=== PATIENT | male | born 1975 | race Caucasian/White ===

== ENCOUNTER 2025-09-29 19:14 | Emergency (ER) | payer OTHER, SELFPAY ==
[2025-09-29] VITALS (7 sets, daily range): BP systolic 128–156; BP diastolic 74–99; PULSE 83–85; RESP 17–20; TEMP 36.9; O2SAT 95–97
--- NOTE | 2025-09-29 19:30 | PC.NURSE ---
Pt seen a neurologist from his previous seziure and had an MRI with no finding.
--- NOTE | 2025-09-29 19:35 | ECG_ITS ---
Test Date: 2025-09-29 19:43:02 Measurements Intervals [place] Rate: 76 P: 36 NV: 157 QRS: 35 QRSD: 100 T: -17 QT: 341 QTc: 385 Interpretive Statements SINUS RHYTHM CONSIDER INFERIOR INFARCT, AGE INDETERMINATE ABNORMAL ECG No previous ECG available for comparison Electronically Signed On 09-29-2025 20:41:30 EKG MANAGER by Troy Epperson D.O.
--- NOTE | 2025-09-29 20:42 | PC.NURSE ---
pt refusing a head CT.
--- NOTE | 2025-09-29 20:48 | PC.NURSE ---
pt resfusing XR
[2025-09-29 21:05] LABS: Hematocrit 42.0 % (42.0-52.0); Hemoglobin 14.7 g/dL (14.0-18.0); Immature Granulocyte Percent A 0.4 % (0-0.5); Lymphocytes Absolute Auto 1.43 K/mm3 (0.9-3.2); Mean Corpuscular HGB Conc 35.0 g/dl (32-36); Mean Corpuscular Hemoglobin 32.0 pg (26-34); Mean Corpuscular Volume 91.5 fl (80-100); Nucleated Red Blood Cells Absolute Auto 0.000 K/mm3 (0.0-0.012); Nucleated Red Blood Cells Perc 0.0 % (0.0-0.2); Platelet Count Result 250 k/mm3 (150-375); Red Blood Count 4.59 M/mm3 (4.6-6.20); White Blood Count 13.3 K/mm3 (4.5-10.0)
[2025-09-29 21:06] LABS: Add Urine Microscopic? NO; Appearance Urine Clear (Clear); Glucose Urine UA Negative (Negative); Leukocyte Esterase Ur Negative LEU/UL (Negative); Nitrate Urine Negative (Negative); Specific Grav Ur 1.010 (1.001-1.035)
[2025-09-29 21:17] LABS: Alanine Aminotransferase 24 U/L (6-50); Albumin Level 4.3 g/dL (3.5-5.1); Alkaline Phosphatase 69 U/L (38-126); Anion Gap 5 mmol/L (4-12); Aspartate Amino Transferase 29 U/L (17-59); Bilirubin,Total 0.5 mg/dL (0.2-1.3); Blood Urea Nitrogen 12 mg/dL (9-20); Calcium 9.2 mg/dL (8.4-10.2); Carbon Dioxide 26 mmol/L (22-30); Chloride 104 mmol/L (98-107); Estimated CRCL calculation 87 ml/min; Estimated Glomerular Filt Rate > 60; Glucose 124 mg/dL (65-110); Potassium 3.6 mmol/L (3.4-5.0); Sodium 135 mmol/L (137-145); Total Protein 6.9 g/dL (6.3-8.2)
--- NOTE | 2025-09-29 21:25 | ED_ITS ---
HPI - Seizure General Chief Complaint: Seizure Stated Complaint: SEIZURE/POST-ICTAL Time Seen by Provider: 09/29/25 21:06 Source: patient and EMS Mode of arrival: EMS Limitations: no limitations History of Present Illness HPI Narrative: This is a 49-year-old male with history of a prior seizure who presents to the ED for seizure. Patient states that he was at a [employer] doing a [employer]er [employer] when he had flashes of light to his right eye and subsequently passed out after that. There was reported seizure activity with full body shaking that lasted about 1 minute. Patient was postictal upon arrival but has returned to his baseline per sister. Patient reports some tongue pain at this time but denies any other issues. Related Data Allergies Allergy/AdvReac Type Severity Reaction Status Date / Time No Known Allergies Allergy Verified 09/29/25 21:50 Review of Systems 2 Review of Systems: Gen.: Denies fevers or chills Eyes: Denies eye pain or visual change ENT: Denies congestion Respiratory: Denies shortness of breath or cough CV: Denies chest pain or palpitations GI: Denies abdominal pain nausea, emesis or diarrhea denies burning, urgency, frequency or hematuria Musculoskeletal: Denies back pain or muscle pain Neuro: Denies numbness, tingling, weakness or focal weakness Skin: Denies rash Except as documented, all other systems reviewed and negative Exam 2 Narrative: APPEARANCE: No acute distress, nontoxic, resting in bed EYES: EOMI HEENT: Normocephalic, atraumatic, OMM. 2 cm tongue laceration, bleeding controlled RESPIRATORY: No respiratory distress Clear to auscultation bilaterally with no rhonchi wheezing or rales. CARDIOVASCULAR: Regular rate and rhythm without murmurs rubs or gallops. ABDOMINAL: Soft, nontender, nondistended, no rebound or guarding MUSCULOSKELETAl: Moves all extremities. No clubbing, cyanosis or edema. NEURO: Awake and alert. Following commands, speech normal, no focal deficits SKIN:: Warm, dry. No rashes lesions or abrasions PSYCHIATRIC: Normal affect/mood, Course Vital Signs Vital signs: Vital Signs Temperature 98.4 F 09/29/25 19:15 Pulse Rate 85 09/29/25 19:15 Respiratory Rate 20 09/29/25 19:15 Blood Pressure 153/97 H 09/29/25 19:15 Pulse Oximetry 96 09/29/25 19:15 Oxygen Delivery Room Air 09/29/25 19:15 Temperature 98.4 F 09/29/25 19:15 Pulse Rate 83 09/29/25 21:57 Respiratory Rate 17 09/29/25 21:57 Blood Pressure 156/99 H 09/29/25 21:57 Pulse Oximetry 97 09/29/25 21:57 Oxygen Delivery Room Air 09/29/25 19:34 [facility] Narrative Medical decision making narrative: 49-year-old male Presenting for seizure activity. On initial evaluation patient was in no acute distress afebrile, hemodynamic stable. Differentials include but are not limited to: Seizure, electrolyte abnormality, ACS Notable exam findings: Nonfocal neuro exam, 3 cm laceration to the right side of the tongue, bleeding controlled I personally reviewed the patient's lab result. Notable lab findings: Mild leukocytosis at 13.3. CMP without significant abnormalities. UA clear. EKG is interpreted by myself: Normal sinus rhythm, normal axis, normal intervals, no acute ST or T-wave changes Patient had returned to his baseline on my evaluation. He was declining any additional imaging at this time. He will follow-up with his neurologist in the next week for re-evaluation. He was given a loading dose of Keppra here in the ED. He was given a new prescription for Keppra. Patient was agreeable to this plan. Given strict return precautions. Differential Diagnosis Differential Diagnosis: Seizure, electrolyte abnormality, ACS Lab Data [facility] Lab Attestation statement: I personally reviewed the patient's lab results. 09/29/25 20:57 09/29/25 20:56 Labs: Lab Results 09/29/25 09/29/25 09/29/25 Range/Units 20:56 20:57 20:58 WBC 13.3 H (4.5-10.0) K/mm3 RBC 4.59 L (4.6-6.20) M/mm3 Hgb 14.7 (14.0-18.0) g/dL Hct 42.0 (42.0-52.0) % MCV 91.5 (80-100) fl MCH 32.0 (26-34) pg MCHC 35.0 (32-36) g/dl RDW 12.1 (11.5-14.5) % Plt Count 250 (150-375) k/mm3 MPV 9.3 (7.4-10.4) fl Immature Gran % (Auto) 0.4 (0-0.5) % Neut % (Auto) 83.0 H (45.5-73.1) % Lymph % (Auto) 10.8 L (18.3-44.2) % [place] % (Auto) 5.1 (2.6-8.5) % Eos % (Auto) 0.5 (0-4.4) % Baso % (Auto) 0.2 (0.2-1.2) % Lymph # (Auto) 1.43 (0.9-3.2) K/mm3 Anderson # (Auto) 0.7 H (0.1-0.6) K/mm3 Eos # (Auto) 0.1 (0-0.3) K/mm3 Baso # (Auto) 0.0 (0.0-0.1) K/mm3 Abs Immat Gran (auto) 0.05 H (0.00-0.031) K/mm3 Absolute Neuts (auto) 11.0 H (1.3-6.7) K/mm3 Absolute Nucleated RBC 0.000 (0.0-0.012) K/mm3 Nucleated RBC % 0.0 (0.0-0.2) % Sodium 135 L (137-145) mmol/L Potassium 3.6 (3.4-5.0) mmol/L Chloride 104 (98-107) mmol/L Carbon Dioxide 26 (22-30) mmol/L Anion Gap 5 (4-12) mmol/L BUN 12 (9-20) mg/dL Creatinine 0.86 (0.7-1.3) mg/dL Estim Creat Clear Calc 87 ml/min Estimated GFR > 60 (59 - ) Glucose 124 H (65-110) mg/dL Lactic Acid 1.4 (0.7-2.0) mmol/L Calcium 9.2 (8.4-10.2) mg/dL Total Bilirubin 0.5 (0.2-1.3) mg/dL AST 29 (17-59) U/L ALT 24 (6-50) U/L Alkaline Phosphatase 69 (38-126) U/L Total Protein 6.9 (6.3-8.2) g/dL Albumin 4.3 (3.5-5.1) g/dL Urine Color Yellow (Yellow) Urine Appearance Clear (Clear) Urine pH 5.0 (5.0-9.0) Ur Specific [place] 1.010 (1.001-1.035) Urine Protein Negative (Negative) mg/dL Urine Glucose (UA) Negative (Negative) mg/dL Urine Ketones Negative (Negative) mg/dL Ur Blood (Man) Negative (Negative) Urine Nitrate Negative (Negative) Urine Bilirubin Negative (Negative) Urine Urobilinogen 0.2 (<2.0) mg/dL Leukocyte Esterase Rfl Negative (Negative) [place] Discharge Plan Discharge Clinical Impression: Generalized seizure, Laceration of tongue Patient Disposition: Home Condition: Stable Instructions: Antibiotic Form, Epilepsy (ED) Additional Instructions: Take Keppra as prescribed. Follow-up with the neurologist you follow-up with previously in the next week for re-evaluation. Return to the ED for any new or worsening symptoms. Patient Language: Serbian Prescriptions: New levetiracetam [Keppra] 500 mg tablet 500 mg PO BID Qty: 60 0RF Follow-up/Referrals: Malinda Brown DO [Physician, Family Practice]
== END 2025-09-29 22:00 | disposition home or self-care (01) ==
LOC: ANHED 21:39
PROVIDERS: Emergency Provider Student in an Organized Health Care Education/Training Program; PCP Family Medicine
DX: R56.9 Unspecified convulsions (principal); S01.512A Laceration without foreign body of oral cavity, initial encounter; R94.31 Abnormal electrocardiogram [ECG] [EKG]; X58.XXXA Exposure to other specified factors, initial encounter
CPT/HCPCS: 36415; 80053; 81003; 83605; 85025; 93005; 99284; A9270